=== PATIENT | female | born 1955 | race Hispanic/Latino ===

== ENCOUNTER → 2021-01-16 | Outpatient (CLI) | payer BC | LOC: MRI 07:32 | PROVIDERS: ATTEND Specialist | DX: M17.0 Bilateral primary osteoarthritis of knee (principal); S83.222A Peripheral tear of medial meniscus, current injury, left knee, initial encounter; S83.262A Peripheral tear of lateral meniscus, current injury, left knee, initial encounter ==

== ENCOUNTER → 2021-02-22 | Outpatient (CLI) | payer BC | LOC: MRI 14:31 | PROVIDERS: ATTEND Specialist | DX: S83.221D Peripheral tear of medial meniscus, current injury, right knee, subsequent encounter (principal) ==